=== PATIENT | male | born 1940 | race Caucasian/White ===

== ENCOUNTER → 2016-11-20 | Outpatient (CLI) | payer MEDICARE, OTHER ==
[~2016-11-20] MED LIST: AMLO10TA2 PO; ASPI-725 PO; ASTELIN NASAL SPRAY NAS; BISA-72 PO; CALC600T12 PO; DOCU-118 PO; DULO60CA56 PO; FURO40TA5 PO; HYDR-4078 PO; LEVO50TA11 PO; MIRT30TA6 PO; OXYC5CAP3 PO; POTA20TA87 PO; PRAV20TA48 PO; PROM12.510 PO
--- NOTE | 2016-11-20 09:39 | DI ---
Indication: ITS.REASON: M54.5 LOW BACK PAIN, history of multiple myeloma PROCEDURE: MRI LUMBAR SPINE W/O CONTRAST: Encounter: Initial Comparison: MRI lumbar spine dated October 25, 2015 Technique: Multiplanar multisequence MR imaging of the lumbar spine was performed without contrast. Findings: Alignment of the lumbar spine is stable with anterior and posterior spinal fusion. Posterior pedicle screws and rods from L1 through L4. Interbody bone cages at L4-L5 and L5-S1. Hardware appears unchanged from the prior study. Posterior decompression extending from L2 through L5. No acute fracture identified. Conus medullaris terminates normally at L3. Posterior paraspinal fluid collection is stable in size and appearance. No focal metastatic lesions seen within the vertebrae. Segmental analysis: L1-L2: Unchanged appearance without significant central canal or neural foraminal stenosis. L2-L3: Posterior decompression. No focal disk herniation. No neural foraminal stenosis. L3-L4: Posterior decompression. No focal disk herniation. No neural foraminal stenosis. L4-L5: Posterior decompression. No focal disk herniation. Mild degenerative facet disease without neural foraminal stenosis. L5-S1: Posterior decompression with mild degenerative facet change. No focal disk protrusion. Minimal bony bilateral neural foraminal narrowing. Impression: No metastatic disease identified. Overall stable appearance of the postoperative lumbar spine. .
== END ==
LOC: IMA 07:34
PROVIDERS: ATTEND Internal Medicine Hematology & Oncology
DX: M54.5 Low back pain (principal); Z98.890 Other specified postprocedural states